=== PATIENT | female | born 1975 | race Two or more races ===

== ENCOUNTER 2019-05-26 15:19 | Inpatient (IN) | payer MEDICARE, MEDICAID ==
[~2019-05-26] VITALS: Ht 160 cm; Wt 116.2 kg
[~2019-05-26 15:19] MED LIST: BACL10TA PO; BUPR-40 PO; FURO20TA3 PO; SERT25TA84 PO
[2019-05-26 16:05] LABS: Basophils # (auto) 0.1 uL; Basophils % (auto) 1.1 % (0.0-2.0); Eosinophils # (auto) 0.2 uL; Eosinophils % (auto) 2.2 % (0.0-7.0); Hematocrit 37.2 % (36.0-46.0); Hemoglobin 12.5 g/dL (12.2-16.2); Lymphocytes # (auto) 1.6 uL; Lymphocytes % (auto) 18.5 % (10.0-50.0); Mean Corpuscular Hemoglobin 28.1 pg (28.0-32.0); Mean Corpuscular Hgb Conc. 33.5 g/dL (32.0-36.0); Mean Corpuscular Volume 83.9 fL (80.0-100.0); Monocytes # (auto) 0.7 uL; Monocytes % (auto) 7.6 % (0.0-12.0); Neutrophils # (auto) 6.1 uL; Neutrophils % (auto) 70.6 % (37.0-80.0); Platelet Count (auto) 214 10^3/uL (140-450); Red Blood Cells 4.44 10^6/uL (4.0-5.20); Red Cell Distribution Width 15.7 % (11.8-14.3); White Blood Cell 8.7 10^3/uL (4.4-10.8)
[2019-05-26 16:24] LABS: Albumin 3.4 g/dL (3.4-5.0); Anion Gap 7 (5-15); Blood Urea Nitrogen 18 mg/dL (7-18); Calcium 9.2 mg/dL (8.5-10.1); Carbon Dioxide 31 mmol/L (21-32); Chloride 103 mmol/L (98-107); Glucose 107 mg/dL (74-106); Sodium 141 mmol/L (136-145)
[2019-05-26 16:29] LABS: Alanine Aminotransferase 151 U/L (13-56); Alkaline Phosphatase 165 U/L (45-117); Aspartate Aminotransferase 116 U/L (15-37); BUN/Creatinine Ratio 18.9; Bilirubin, Total 0.4 mg/dL (0.2-1.0); GFR African American 83 mL/min; GFR Non-African American 68 mL/min; Total Protein 7.9 g/dL (6.4-8.2)
[2019-05-26 16:39] LABS: INR 1.01 (0.9-1.15); Partial Thromboplastin Time 26.1 sec (23.64-32.05)
[2019-05-26] MEDS ORDERED: NITROGLYCERIN 0.4 MG SL TAB SL PRN (17:15)
[2019-05-26] MEDS ORDERED: MORPHINE SULF INJ 2 MG/ML SYRINGE 1ML IV PRN (17:15)
[2019-05-26] MEDS ORDERED: AMIODARONE HCL 150 MG in D5W 5% 100 ML IV ONE (18:30)
[2019-05-26] MEDS ORDERED: AMIODARONE HCL 900 MG in DEXTROSE 500 ML IV SCH (18:45)
--- NOTE | 2019-05-26 21:52 | NUR ---
Telemetry admit from ER TIFFANY FENTON admitted to Telemetry unit after SBAR received. Patient oriented to Graciela Marie, primary RN, unit, room, bed, and unit policies regarding patient care and visiting hours. Patient now on continuous telemetry monitoring, tele box # [id number] and telemetry reading on arrival to unit is paced. Patient placed on bedside oxygen, weighed by bedscale and encouraged to call if they need something. All questions and concerns addressed, patient verbalized understanding.
[2019-05-26 22:00] VITALS: BP 144/80
--- NOTE | 2019-05-26 22:33 | NUR ---
PATIENT HAS COMPLAINT OF A HEADACHE AND REQUESTING TYLENOL. WILL [facility] HOSPITALIST.
[2019-05-26] MEDS ORDERED: ACETAMINOPHEN 325 MG TAB PO ONE ×2 (23:00→23:29)
--- NOTE | 2019-05-27 04:06 | NUR ---
MRSA SWAB SENT TO LAB
[2019-05-27 05:00] VITALS: BP 128/76
--- NOTE | 2019-05-27 06:26 | NUR ---
PATIENT STATING SHE HAS HEADACHE AGAIN AND WOULD LIKE TO HAVE TYLENOL, IT HELPED HER HEADACHE LAST TIME. WILL PAGE HOSPITALIST.
[2019-05-27] MEDS ORDERED: ACETAMINOPHEN 500 MG TAB PO ONE (07:00)
--- NOTE | 2019-05-27 07:30 | NUR ---
Opening Shift Note Assumed care of patient. Patient is awake and alert. No S/S of distress/SOB or pain. Instructed on POC and to call for assist PRN, will continue to monitor. Bed locked in the lowest position. Bed rails up x2. Call light in reach.
--- NOTE | 2019-05-27 08:30 | NUR ---
ULTRASOUND AT THE BEDSIDE.
[2019-05-27] MEDS: SACUBITRIL-VALSARTAN 24mg/26mg TAB PO SCH ×2 (08:59→21:06)
[2019-05-27] MEDS: CARVEDILOL 3.125 MG TAB PO SCH ×2 (08:59→21:06)
[2019-05-27 09:00] VITALS: BP 162/92
[2019-05-27] MEDS: FUROSEMIDE 40 MG/4 ML VIAL IV SCH ×2 (09:00→18:12)
[2019-05-27] MEDS ORDERED: OPTISON 3ml Vial for INJ IV ONE (10:44)
[2019-05-27 13:00] VITALS: BP 126/64
[2019-05-27 17:00] VITALS: BP 127/65
--- NOTE | 2019-05-27 19:15 | NUR ---
AT THE BEDSIDE DR. WALLS AT THE BEDSIDE. ALL QUESTIONS AND CONCERNS ADDRESSED AT THIS TIME.
--- NOTE | 2019-05-27 19:30 | NUR ---
CLOSING NOTE Patient is awake and alert. No S/S of distress/SOB or pain. Bed locked in the lowest position. Bed rails up x2. Call light in reach. Endorsed care to night nurse.
--- NOTE | 2019-05-27 19:40 | NUR ---
Opening Shift Note Received report and assumed care of patient. Patient is awake and alert. No signs or symptoms of distress noted. Patient complains of back pain 4/10, will administer due pain medication. Instructed patient on plan of care and to call for assistance as needed. Will continue to monitor.
[2019-05-27 19:59] LABS: Urine WBC None Seen /hpf (0 - 5)
[2019-05-27 20:00] VITALS: BP 104/62
[2019-05-27 20:14] LABS: Urine Bacteria FEW /hpf (None Seen); Urine Blood Negative /uL (Negative); Urine Specific Gravity 1.005 (1.001-1.035)
[2019-05-27] MEDS: ACETAMINOPHEN 500 MG TAB PO PRN (21:05)
[2019-05-27] MEDS: DOCUSATE SOD 100 MG CAP PO SCH (21:05)
[2019-05-27 22:00] VITALS: BP 104/62
[2019-05-27] MEDS ORDERED: POTASSIUM CHL 20 Meq TABLET PO ONE (22:00)
[2019-05-28 05:00] VITALS: BP 99/54
[2019-05-28 06:40] LABS: Basophils # (auto) 0 uL; Basophils % (auto) 0.4 % (0.0-2.0); Eosinophils # (auto) 0.3 uL; Eosinophils % (auto) 3.3 % (0.0-7.0); Hematocrit 37.1 % (36.0-46.0); Hemoglobin 12.2 g/dL (12.2-16.2); Lymphocytes % (auto) 23.1 % (10.0-50.0); Mean Corpuscular Hemoglobin 27.9 pg (28.0-32.0); Mean Corpuscular Hgb Conc. 32.9 g/dL (32.0-36.0); Mean Corpuscular Volume 84.8 fL (80.0-100.0); Monocytes # (auto) 0.7 uL; Monocytes % (auto) 7.7 % (0.0-12.0); Neutrophils # (auto) 5.8 uL; Neutrophils % (auto) 65.5 % (37.0-80.0); Nucleated Red Blood Cells % 0.1 %; Platelet Count (auto) 198 10^3/uL (140-450); Red Blood Cells 4.37 10^6/uL (4.0-5.20); Red Cell Distribution Width 15.8 % (11.8-14.3); White Blood Cell 8.9 10^3/uL (4.4-10.8)
[2019-05-28] MEDS: FUROSEMIDE 40 MG/4 ML VIAL IV SCH ×2 (06:52→18:20)
[2019-05-28 06:58] LABS: Calcium 8.3 mg/dL (8.5-10.1); Magnesium 2.2 mg/dL (1.6-2.6); Potassium 3.1 mmol/L (3.5-5.1)
[2019-05-28 06:59] LABS: BUN/Creatinine Ratio 24.2
--- NOTE | 2019-05-28 07:45 | NUR ---
OPENING SHIFT NOTE: Received report from NOC RN, Davy. Assumed care of patient. Patient resting in bed, denies pain. Bed in lowest position, rails x2 up and call light within reach. Updated on plan of care. Will continue to monitor.
[2019-05-28] MEDS: ACETAMINOPHEN 500 MG TAB PO PRN (08:47)
[2019-05-28 09:00] VITALS: BP 124/66
[2019-05-28] MEDS: DOCUSATE SOD 100 MG CAP PO SCH ×2 (10:58→21:43)
[2019-05-28] MEDS: POTASSIUM CHL 20 Meq TABLET PO SCH ×2 (10:58→21:43)
[2019-05-28] MEDS: CARVEDILOL 3.125 MG TAB PO SCH ×2 (10:58→21:46)
[2019-05-28] MEDS: SACUBITRIL-VALSARTAN 24mg/26mg TAB PO SCH ×2 (10:58→21:43)
[2019-05-28 13:00] VITALS: BP 103/67
[2019-05-28] MEDS ORDERED: MAGNESIUM OXIDE 400 MG TAB PO ONE (13:15)
[2019-05-28] MEDS ORDERED: POTASSIUM CHL 20 Meq TABLET PO ONE (13:15)
[2019-05-28] MEDS ORDERED: metOLazone 5 MG TAB PO ONE (13:15)
[2019-05-28 17:00] VITALS: BP 116/75
--- NOTE | 2019-05-28 19:33 | NUR ---
CLOSING SHIFT NOTE: Report given to NOC RNYasmine. Endorsed care of patient.
--- NOTE | 2019-05-28 19:45 | NUR ---
Opening Shift Note Assumed care of patient, awake and alert. No S/S of distress/SOB or pain. Instructed on POC and to call for assist PRN, patient verbalized understanding, call light within reach, will continue to monitor for changes Q1hr and PRN.
[2019-05-28 22:00] VITALS: BP 126/57
[2019-05-29 05:00] VITALS: BP 102/54
[2019-05-29] MEDS: FUROSEMIDE 40 MG/4 ML VIAL IV SCH ×2 (06:10→18:50)
[2019-05-29 06:16] LABS: Albumin 3.1 g/dL (3.4-5.0); Calcium 8.4 mg/dL (8.5-10.1); Potassium 3.2 mmol/L (3.5-5.1)
[2019-05-29 06:20] LABS: Bilirubin, Total 0.4 mg/dL (0.2-1.0); Total Protein 7.8 g/dL (6.4-8.2)
--- NOTE | 2019-05-29 07:50 | NUR ---
PT SITING ON EDGE OF BED DANGLING FEET AND EATING BREAKFAST. PT REPORTS 5/10 PAIN IN ABDOMEN AND TENDERNESS. SMALL ABDOMINAL INCISION NOTED WITH MINIMAL SEROUS DRAINAGE NOTED ON OPTIFOAM. PT REPORTS THE INCISION IS FROM A HERNIA REPAIR AND IS HEALING. PT ENCOURAGED TO USE CALL LIGHT PRN. WILL CONTINUE TO MONITOR.
[2019-05-29 09:00] VITALS: BP 97/61
--- NOTE | 2019-05-29 09:54 | NUR ---
[facility] CALLED, THEY REPORT PT HR DROPPED TO 30'S AND THEN UP TO 115. THEY REPORT THE PACEMAKER IS GOING. ASSESSED TELE MONITOR, PACEMAKER SPIKES SHOWING, HR 48. ASSESSED PT, PT SITTING ON EDGE OF BED WITH FEET DANGLING. PT REPORTS NO SOB OR DISTRESS. PT REPORTS SHE FEELS, "A LITTLE HOT." PT ENCOURAGED TO USE CALL LIGHT PRN. CALED AND LEFT MESSAGE WITH DR WALLS NOTIFYING MD PT HR WENT TO 30'S AND THEN TO 115. AWAITING CALL BACK.
[2019-05-29] MEDS: CARVEDILOL 3.125 MG TAB PO SCH ×2 (10:00→22:00)
--- NOTE | 2019-05-29 10:31 | NUR ---
Dr Davis at bedside speaking with pt about test results. Dr Davis reports pt is cleared to dc from GI perspective.
[2019-05-29] MEDS: DOCUSATE SOD 100 MG CAP PO SCH ×2 (10:33→22:00)
[2019-05-29] MEDS: SACUBITRIL-VALSARTAN 24mg/26mg TAB PO SCH ×2 (10:34→22:00)
[2019-05-29] MEDS: ACETAMINOPHEN 500 MG TAB PO PRN (10:34)
[2019-05-29] MEDS: POTASSIUM CHL 20 Meq TABLET PO SCH ×2 (10:35→22:00)
--- NOTE | 2019-05-29 11:23 | NUR ---
CALLED AND LEFT MESSAGE WITH DR PUGA OFFICE, NOTIFIED PLANOGRAMMER PT HR GOING FROM 30'S TO 115. AWAITING CALL BACK. Signed: 05/29/19 at 1124 by KALLI LANG RN
--- NOTE | 2019-05-29 11:43 | NUR ---
PT REPORTS SHE IS HOT AND REQUESTING A FAN, FAN BROUGHT, WILL CONTINUE TO MONITOR.
[2019-05-29 12:00] LABS: Hepatitis A Ab IgM Negative
[2019-05-29 12:29] LABS: Hepatitis B Core IgM Negative
[2019-05-29 12:44] LABS: Hepatitis B Surface Antigen Negative (Negative)
[2019-05-29] MEDS ORDERED: POTASSIUM CHL 20 Meq TABLET PO ONE (12:45)
--- NOTE | 2019-05-29 12:46 | NUR ---
DR WALLS CALLED BACK, NEW ORDERS FOR 40 MEQ POTASSIUM. REPORTED TO PT POT 3.2.
[2019-05-29 13:00] VITALS: BP 110/59
[2019-05-29 13:06] LABS: Hepatitis C Antibody Negative (Negative)
--- NOTE | 2019-05-29 16:31 | NUR ---
CALLED DR SANCHEZ'S OFFICE AND LEFT MESSAGE AGAIN. AWAITING CALL BACK.
--- NOTE | 2019-05-29 16:36 | NUR ---
DR WALLS SAW PATIENT AND DISCUSSED POC. NOTIFIED DR WALLS PT HR WENT DOWN TO THE 30'S AND THEN UP TO 115. MD REPORTS PT CAN DC IF CLEARED BY DR SANCHEZ. PT REPORTS NO SYMPTOMS AND REPORTS TO MD SHE WOULD LIKE TO GO HOME TOMORROW.
[2019-05-29 17:00] VITALS: BP 108/71
--- NOTE | 2019-05-29 19:18 | NUR ---
Dr West called back. Notified MD pt HR dropped to 30's and then up to 115. aware. reports no intervention at this time.
[2019-05-29 22:00] VITALS: BP 104/65
[2019-05-30 05:48] VITALS: BP 92/62
[2019-05-30] MEDS: FUROSEMIDE 40 MG/4 ML VIAL IV SCH ×2 (06:00→18:27)
[2019-05-30 09:00] VITALS: BP 110/47
[2019-05-30] MEDS: DOCUSATE SOD 100 MG CAP PO SCH (10:00)
--- NOTE | 2019-05-30 10:25 | NUR ---
ANESTHESIOLOGISTS' ASSISTANT REPORTS BP 110/47, HR 101. RECHECKED PT BP. BP 110/75, HR 114.
[2019-05-30] MEDS: SACUBITRIL-VALSARTAN 24mg/26mg TAB PO SCH (10:33)
[2019-05-30] MEDS: POTASSIUM CHL 20 Meq TABLET PO SCH (10:34)
[2019-05-30] MEDS: CARVEDILOL 3.125 MG TAB PO SCH (10:34)
--- NOTE | 2019-05-30 11:17 | NUR ---
Nutrition Assessment Notes please see attached link for complete assessment Est. Needs based on AdBW (84 kg): 2360-8768 kcal (17-20 kcal/kgAdBW), 67-84 gms pro (0.8-1.0 gms/kgAdBW r/t elev RFT). Will continue to monitor pertinent labs and reassess nutrient need prn Addendum: 05/30/19 at [address] Amended: Links added.
[2019-05-30 13:17] VITALS: BP 104/68
--- NOTE | 2019-05-30 14:31 | NUR ---
ASSESSED PT 02 ON ROOM AIR, 02 96%. NO DISTRESS NOTED. Signed: 05/30/19 at 1432 by KALLI LANG RN
[2019-05-30 17:12] VITALS: BP 135/77
--- NOTE | 2019-05-30 19:30 | NUR ---
Opening Shift Note Assumed care of patient, awake and alert x4. No S/S of distress/SOB or pain. Instructed on POC and to call for assist PRN. All questions and concerns answered, will continue to monitor for changes Q1hr and PRN.
--- NOTE | 2019-05-30 19:42 | NUR ---
Patient's family member called, password provided. Updated on plan of care, all questions and concerns answered.
--- NOTE | 2019-05-30 20:02 | NUR ---
Paged Dr. Magallon. Patient is requesting to have a discharge order. She states Dr. Magallon told her yesterday after she was cleared by Dr. Mancia and Dr. Morales that she could go home.
--- NOTE | 2019-05-30 20:21 | NUR ---
Patient states she is going to come back on Sunday with her bag shop worker, she feels she was neglected during her visit at this hospital since 1400 today. She is asking to speak with the wire charger. benzene worker was called to speak with the patient.
--- NOTE | 2019-05-30 20:28 | NUR ---
tomb maker helper is at patient's bedside speaking with her.
--- NOTE | 2019-05-30 20:37 | NUR ---
Patient eloped Patient refused to sign AMA form. She eloped from the hospital after IV to the LAC 20g and telemetry #75 was removed Addendum: 05/30/19 at 2138 by ANALY FREEMAN RN RN All patient belongings taken with patient.
--- NOTE | 2019-05-30 20:42 | NUR ---
Paged Dr. Magallon to inform him of the patient eloping from the hospital.
== END 2019-05-30 20:37 | disposition left against medical advice (07) | DRG 292 ==
LOC: ER 15:21 → TELE-WESTW 15:22
PROVIDERS: ADMIT Nurse Practitioner; ATTEND Internal Medicine
DX: I50.43 Acute on chronic combined systolic (congestive) and diastolic (congestive) heart failure (principal); Z68.42 Body mass index [BMI] 45.0-49.9, adult; I42.8 Other cardiomyopathies; I34.0 Nonrheumatic mitral (valve) insufficiency; J44.9 Chronic obstructive pulmonary disease, unspecified; F41.9 Anxiety disorder, unspecified; R00.1 Bradycardia, unspecified; G35 Multiple sclerosis; Z53.29 Procedure and treatment not carried out because of patient's decision for other reasons; F32.9 Major depressive disorder, single episode, unspecified; K43.9 Ventral hernia without obstruction or gangrene; E66.9 Obesity, unspecified; K80.20 Calculus of gallbladder without cholecystitis without obstruction; Z95.0 Presence of cardiac pacemaker; Z82.49 Family history of ischemic heart disease and other diseases of the circulatory system; Z83.3 Family history of diabetes mellitus; Z90.710 Acquired absence of both cervix and uterus
CPT/HCPCS: 36415; 71045; 76705; 80048; 80053; 80074; 81001; 83735; 83880; 84484; 85025; 85610; 85730; 87081; 93005; 93306; 93970; G0378; J7060; Q9956